=== PATIENT | female | born 1995 | race Caucasian/White ===

== ENCOUNTER 2017-10-04 13:20 | Emergency (ER) | payer MEDICAID, SELFPAY ==
[2017-10-04 14:03] LABS: #Basophils 0.1 thou/uL (0.0-0.2); #Eosinphils 0.4 thou/uL (0.0-0.7); #Lymphocytes 1.6 thou/uL (1.20-3.40); #Monocytes 0.6 thou/uL (0.11-0.59); #Neutrophils 5.2 thou/uL (1.40-6.50); %Basophils 0.8 % (0.0-1.0); %Eosinophils 5.6 % (0.0-10.0); %Lymphocytes 20.1 % (21.0-51.0); %Monocytes 8.1 % (0.0-10.0); %Neutrophils 65.4 % (42.0-75.0); Hemoglobin 14.6 g/dL (12.0-16.0); Mean Corpuscular HGB CONC 32.7 g/dL (32.0-36.0); Mean Corpuscular Hemoglobin 28.8 pg (27.0-31.0); Mean Corpuscular Volume 88.2 fl (81.0-99.0); Mean Platelet Volume 7.8 fL (7.4-10.4); Platelet Count 218 thou/uL (130-400); RBC Distribution Width 11.9 % (11.5-14.5); Red Blood Cell (RBC) Count 5.09 mill/uL (4.20-5.40); White Blood Cell (WBC) Count 7.9 thou/uL (4.8-10.8)
[2017-10-04 14:19] LABS: ALT (SGPT) 16 U/L (8-55); AST (SGOT) 14 U/L (5-34); Albumin 4.5 g/dL (3.5-5.0); Alkaline Phosphatase 75 U/L (40-150); Anion Gap 11 mmol/L (10-20); BUN (Urea Nitrogen) 8 mg/dL (7.0-18.7); Bilirubin, Total 0.9 mg/dL (0.2-1.2); Calc. Creatinine Clearance 0 mL/min (70-130); Calcium 9.7 mg/dL (7.8-10.44); Carbon Dioxide 25 mmol/L (22-29); Chloride 105 mmol/L (98-107); Estimated GFR-MDRD 80; Glucose 95 mg/dL (70-105); Potassium 4.2 mmol/L (3.5-5.1); Protein, Total 7.5 g/dL (6.0-8.3); Sodium 137 mmol/L (136-145)
[2017-10-04 16:11] LABS: Bilirubin Negative (Negative); Blood, Urine Negative (Negative); Clarity CLOUDY (Clear); Glucose, Urine (Dipstick) Negative (Negative); Leukocyte Negative (Negative); Nitrite Negative (Negative); Protein, Urine (Dipstick) Negative (Neg-Trace); Specific Gravity, Urine 1.014 (1.002-1.036); pH, Urine 7.5 (5.0-9.0)
[2017-10-04 16:13] LABS: Pregnancy Test - Urine (BHCG) POSITIVE (Negative); Pregu Control Background? CLEAR/WHITE (CLR/WHITE); Pregu Control Bar Appear? YES (CONTROL BAR); Specific Gravity 1.014 (1.002-1.036)
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
== END 2017-10-04 19:30 | disposition home or self-care (01) ==
LOC: ERS 13:20
DX: O99.89 Other specified diseases and conditions complicating pregnancy, childbirth and the puerperium (principal); R10.31 Right lower quadrant pain; O99.331 Smoking (tobacco) complicating pregnancy, first trimester; F17.200 Nicotine dependence, unspecified, uncomplicated
CPT/HCPCS: 36415; 76856; 80053; 81003; 81025; 84702; 85025

== ENCOUNTER 2017-10-05 12:44 | Inpatient (IN) | payer MEDICAID, OTHER, SELFPAY ==
[2017-10-05 13:17] LABS: #Eosinphils 0.4 thou/uL (0.0-0.7); #Lymphocytes 1.7 thou/uL (1.20-3.40); #Monocytes 0.6 thou/uL (0.11-0.59); #Neutrophils 5.4 thou/uL (1.40-6.50); %Basophils 0.6 % (0.0-1.0); %Eosinophils 4.5 % (0.0-10.0); %Lymphocytes 20.6 % (21.0-51.0); %Monocytes 7.3 % (0.0-10.0); Hemoglobin 14.8 g/dL (12.0-16.0); Mean Corpuscular HGB CONC 32.7 g/dL (32.0-36.0); Mean Corpuscular Hemoglobin 28.7 pg (27.0-31.0); Mean Corpuscular Volume 87.6 fl (81.0-99.0); Mean Platelet Volume 7.7 fL (7.4-10.4); Platelet Count 226 thou/uL (130-400); RBC Distribution Width 11.9 % (11.5-14.5); Red Blood Cell (RBC) Count 5.18 mill/uL (4.20-5.40)
[2017-10-05 13:43] LABS: ALT (SGPT) 15 U/L (8-55); AST (SGOT) 14 U/L (5-34); Albumin 4.7 g/dL (3.5-5.0); Alkaline Phosphatase 76 U/L (40-150); Anion Gap 12 mmol/L (10-20); BUN (Urea Nitrogen) 8 mg/dL (7.0-18.7); Bilirubin, Total 0.9 mg/dL (0.2-1.2); Calc. Creatinine Clearance 0 mL/min (70-130); Calcium 10.1 mg/dL (7.8-10.44); Carbon Dioxide 25 mmol/L (22-29); Chloride 104 mmol/L (98-107); Estimated GFR-MDRD 83; Globulin 3.3 g/dL (2.4-3.5); Glucose 122 mg/dL (70-105); Potassium 4.1 mmol/L (3.5-5.1); Sodium 137 mmol/L (136-145)
[2017-10-05] MEDS ORDERED: Succinylcholine Chloride 20 MG/ML 10 ml SYRINGE FS ONE (13:56)
[2017-10-05] MEDS ORDERED: Ondansetron HCl/PF 4 MG/2 ML Vial ONE (13:56)
[2017-10-05] MEDS ORDERED: Ketorolac Tromethamine 30 MG/ML VIAL ONE (13:56)
[2017-10-05] MEDS ORDERED: Dexamethasone 20 MG/5 ML VIAL ONE (13:56)
[2017-10-05] MEDS ORDERED: Lidocaine 1% PF 5 ML VIAL ONE (13:56)
[2017-10-05] MEDS ORDERED: Glycopyrrolate 0.2 MG/ML 5 ML SYRINGE ONE (13:56)
[2017-10-05] MEDS ORDERED: Propofol 200 MG/20 ML VIAL ONE (13:56)
[2017-10-05] MEDS ORDERED: HYDROmorphone 0.5 MG/0.5 ML SYRINGE ONE (20:42)
[2017-10-05] MEDS ORDERED: Fentanyl 100 MCG/2 ML VIAL ONE ×2 (20:42→22:54)
[2017-10-05] MEDS ORDERED: Piperacillin/Tazobactam 3.375 GM in Sodium Chloride 0.9% 100 ML IVPB SCH (20:45)
[2017-10-05] MEDS ORDERED: EPINEPHrine 1 MG/ML AMP ONE (20:49)
[2017-10-05] MEDS ORDERED: Bupivacaine 0.25% HCL 30 ML VIAL ONE ×2 (20:49)
--- NOTE | 2017-10-05 21:56 | MRI ---
MRI OF THE ABDOMEN WITHOUT CONTRAST 10/05/17 COMPARISON: None. HISTORY: Right sided abdominal pain. TECHNIQUE: Multiplanar and multisequence MR images were obtained of the abdomen without contrast. FINDINGS: The cecum is identified in the right lower quadrant of the abdomen. The appendix emanates from the ce cum and is enlarged and fluid filled measuring up to 10 mm in size. There is a small amount of free f luid adjacent to the cecum and a small amount of free fluid in the pelvis. The reproductive organs are unremarkable. No abdominal adenopathy is seen. No marrow signal abnormali ty is present. No uterine abnormality is seen. IMPRESSION: Dilated fluid filled appendix with small amount of free fluid in the abdomen and pelvis. These findin gs are evidence for acute appendicitis. Dr. Schuler notified of the findings at 8:06 p.m. on 10/05/17. POS: [facility]
[2017-10-05] MEDS ORDERED: Dextrose 5% in Water 1,000 ML IV PRN (22:28)
[2017-10-05] MEDS ORDERED: Promethazine HCl 25 MG/ML VIAL IM PRN (22:28)
[2017-10-05] MEDS ORDERED: hydrALAZINE 20 MG/ML VIAL SLOW IVP PRN (22:28)
[2017-10-05] MEDS ORDERED: HYDROcodone/Acetaminophen 10/325 mg Tablet PO PRN (22:28)
[2017-10-05] MEDS ORDERED: Ondansetron HCl/PF 4 MG/2 ML Vial IVP PRN (22:28)
[2017-10-05] MEDS ORDERED: Dextrose 50% Abboject 50 ML SYRINGE SLOW IVP PRN (22:28)
[2017-10-05] MEDS ORDERED: Acetaminophen/Codeine 30-300mg Tablet PO PRN ×2 (22:31)
--- NOTE | 2017-10-05 23:16 | HP ---
DATE OF ADMISSION: 10/05/2017 HISTORY OF PRESENT ILLNESS: This is a 22-year-old woman, G1, P0, approximately 1 week intr auterine . Last menstrual period was 5 weeks ago. The patient presented to the emergency d [facility] with 2-3 day history of right lower quadrant abdominal pain associated with some nausea, bu t no emesis. She was seen in the emergency department yesterday following abdominal ultrasound, was discharged home, and advised to return to the emergency department with any exacerbation of abdominal pain. The pain at that time was 4/10. The pain intensified today to 6-7/10. As a result, the morelia ent returned to the emergency department. At the time of my evaluation, she denies any fever; howeve r, felt some chills. She denies any diarrhea. PAST MEDICAL HISTORY: She denies any previous medical problems. PAST SURGICAL HISTORY: The patient has had no previous surgeries. SOCIAL HISTORY: She is single. 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 She admits to smoking a quarter pack of cigarettes per day and has done so for less than 1 year. She admits to occasional intake of etha nol in moderate amounts. She denies any illicit drug abuse. FAMILY HISTORY: Notable for her father who from complications of melanoma. She denies any fami ly history of diabetes mellitus, hypertension or heart disease. She denies any history of inflammato ry bowel disease. CURRENT MEDICATIONS: None. ALLERGIES: The patient denies any known drug allergies. REVIEW OF SYSTEMS: Ten-point review of systems essentially unremarkable except for as stated in past medical history and chief complaint. PHYSICAL EXAMINATION: GENERAL: This reveals a 22-year-old normally developed woman, who is otherwise coherent and interact bry and appears stated age. The patient is alert and oriented x3. She appears to be in no acute dis tress at the time of my evaluation. VITAL SIGNS: Include blood pressure 116/66, pulse 98, respiratory rate is 18, temperature is 98.5 de grees Fahrenheit. Oxygen saturation is 97% on room air. HEENT: Reveals normocephalic and atraumatic. Pupils are equal, round, and reactive to light and acc ommodation. Extraocular muscles are intact bilaterally. No sclerae icterus is present. Oral mucosa is pink and moist. No lesions are noted. NECK: Supple. No palpable lymphadenopathy or thyromegaly present. HEART: Reveals regular rate and rhythm, no murmurs or gallops auscultated. LUNGS: Clear to auscultation bilaterally. Her breathing is regular and unlabored. ABDOMEN: Soft with right lower quadrant tenderness at McBurney's. She has a negative Rovsing sign. High uterus is palpated still in the pelvis. Liver and spleen are otherwise nonpalpable below simental l margins. EXTREMITIES: Reveal 2+ radial and pedal pulses bilaterally. No ankle edema is present. NEUROLOGIC: Reveals no focal deficits present. PERTINENT LABORATORY DATA: Today includes CBC with 8000 white blood cells, hemoglobin 14.8, hematocr it is 45.4, platelet count is 226,000. This is essentially unchanged from a white blood cell count o f 7900 yesterday. Metabolic profile: Sodium 137, potassium is 4.1, chloride is 104, bicarbonate 25, BUN 8, creatinine is 0.84, glucose is 122, total bilirubin is 0.9, AST and ALT are normal at 14 and 15 respectively. Alkaline phosphatase is 76. Beta hCG is elevated at 180.15. I reviewed the MRI of the abdomen with the radiologist. This is consistent with a dilated appendix at 1 cm in diameter, w hich is fluid filled and some periappendiceal fat stranding. IMPRESSION: 1. Acute appendicitis. 2. Approximately 1-week intrauterine . PLAN: Laparoscopic appendectomy. Above findings and plan discussed with the patient. I have advise d the patient of the risks and benefits of the proposed surgery. Risks include, but not limited to b leeding, infection, injury to bowel or surrounding structures. Additionally, she is at risk for spon taneous postoperative . The patient indicates understanding of this information and has gran marilynn consent for this admission and surgical intervention.
[2017-10-06] MEDS: Lactated Ringer's 1,000 ML IV SCH ×2 (00:06→09:14)
[2017-10-06 00:11] VITALS: BMI 24.7
--- NOTE | 2017-10-06 00:51 | OP ---
DATE OF OPERATION: 10/05/2017. PREOPERATIVE DIAGNOSES: 1. Acute appendicitis. 2. Approximately 1 week intrauterine . POSTOPERATIVE DIAGNOSES: 1. Acute appendicitis. 2. Approximately 1 week intrauterine . OPERATION PERFORMED: Laparoscopic appendectomy. SURGEON: Kenyon Iyer DO ANESTHESIA: General endotracheal. ESTIMATED BLOOD LOSS: 5 mL. FLUIDS GIVEN: 800 mL crystalloids. SPONGE AND INSTRUMENT COUNT: Certified as correct x2. COMPLICATIONS: None apparent at the time of operation. INDICATIONS FOR OPERATION: This is a 22-year-old woman, G1, P0, approximately 1 week intrauterine pr egnancy who presented with 2 to 3-day history of right lower quadrant abdominal pain. Clinical and radiographic examination was consistent with acute appendicitis, for which the patient w as brought to the operating room for laparoscopic appendectomy. FINDINGS: Consistent with infra-retrocecal appendix, which was suppurative but not perforated. DESCRIPTION OF OPERATION: Informed consent was obtained from the patient. She was brought to the op erating room and placed in supine position. Following anesthesia, a Alcala catheter was inserted and placed to bedside drain. The abdomen was sterilely prepped and draped in the usual fashion. Skin below the umbilicus was infi ltrated with 0.25% Marcaine with epinephrine. A small curvilinear infraumbilical incision was made u sing an 11-scalpel. Umbilical stalk was grasped with a Yanni and elevated. Veress needle was inser marilynn through the incision and placed in the peritoneal cavity, through which the abdomen was insufflat ed with 3 liters of CO2 gas. Intra-abdominal pressure noted at 1 mmHg. Following abdominal insuffla tion, Veress needle was removed, 5-mm trocar introduced using a Visiport under laparoscopy. Laparosc opy confirmed proper placement of the port, no injuries to underlying structures. Additional laparos copy revealed right lower quadrant partially encased by omental adhesions. Under laparoscopy, a 5-mm epigastric and 12-mm left lower quadrant ports were placed after the overlying skin were infiltrated with 0.25% Marcaine with epinephrine and appropriate incisions were made. The patient was placed in the Trendelenburg position, rotated to her left. I introduced Gladysige gra sper through the left lower quadrant port site using this to bluntly take down omental adhesions to e xpose inferior but retrocecal appendix. An Endo Lowber forceps was then introduced through the supr apubic port site grasping the appendix, which was elevated. I used the [place] dissector to create a rent through the mesoappendix at the base, through which an Endo-ZULAY with a blue load was introduce d. Appendix was then divided at the appendicocecal junction. Using a white load of the Endo-ZULAY, th e mesoappendix was divided at the base. Suppurative appendix was delivered off the abdominal cavity using an EndoCatch. Operative site was inspected for good hemostasis. Finding no other pathology, laparoscopy was terminated. Fascia of the left lower quadrant port was c losed using 0 Vicryl suture and Endo closure device under laparoscopy. The abdomen was desufflated. All ports and instruments removed and accounted for. Skin incisions were then closed using 4-0 Prentiss cryl suture in subcuticular fashion. Dermabond was applied over the incisions after closure. The lisset clark tolerated this operation without any apparent complication and was returned to the recovery [facility] in satisfactory condition.
[2017-10-06] MEDS: Piperacillin/Tazobactam 3.375 GM in Sodium Chloride 0.9% 100 ML IVPB SCH ×2 (03:49→09:54)
[2017-10-06 08:10] VITALS: BP 90/52; TEMP 98.5
[2017-10-06] MEDS ORDERED: Famotidine/PF 20 mg/2ml Vial SLOW IVP SCH (09:00)
[2017-10-06] MEDS ORDERED: Famotidine 20 MG TAB PO SCH (09:00)
--- NOTE | 2017-10-08 11:30 | DIS ---
DATE OF ADMISSION: 10/05/2017 DATE OF DISCHARGE: 10/06/2017 ADMISSION DIAGNOSIS: Acute appendicitis. CONSULTATIONS: None. PROCEDURES: Laparoscopic appendectomy. HOSPITAL SUMMARY: The patient is a 22-year-old woman who is G1, P0 approximately 1 week intrauterine who presented with a 2-3 day history of right lower quadrant abdominal pain. Patient unde rwent evaluation for this complaint, was noted to have an acute appendicitis. The patient would unde rgo her above procedure. She would tolerate this procedure well. [facility]. The following morning, she was tolerating a diet. She was ambulatory without assistance. Her pain was controlled and she will be discharged home. The patient will follow up ms rachel Iyer in our clinic in 2 weeks, sooner as needed.
== END 2017-10-06 11:03 | disposition home or self-care (01) | DRG 781 ==
LOC: ERS 12:44 → SURG B 21:15 → SDC 22:04 → SURG B 22:28
PROVIDERS: ADMIT Surgery; ATTEND Surgery
PROC: 0DTJ4ZZ Resection of Appendix, Percutaneous Endoscopic Approach (ICD-10-PCS; principal; 2017-10-05)
DX: O99.611 Diseases of the digestive system complicating pregnancy, first trimester (principal); K35.80 Unspecified acute appendicitis; Z3A.01 Less than 8 weeks gestation of pregnancy; O99.331 Smoking (tobacco) complicating pregnancy, first trimester; F17.210 Nicotine dependence, cigarettes, uncomplicated
CPT/HCPCS: 36415; 74181; 80053; 84702; 85025; 88304; 88313; 88341; 88342; 96360; J0171; J1100; J1170; J1885; J2001; J2405; J2543; J2550; J2704; J3010; J7050; S0020

== ENCOUNTER 2017-10-18 23:31 | Emergency (ER) | payer MEDICAID ==
[2017-10-19 00:20] LABS: Bilirubin Negative (Negative); Blood, Urine Negative (Negative); Clarity CLEAR (Clear); Glucose, Urine (Dipstick) Negative (Negative); Leukocyte Negative (Negative); Nitrite Negative (Negative); Protein, Urine (Dipstick) Negative (Neg-Trace); Specific Gravity, Urine 1.014 (1.002-1.036); Urobilinogen 0.2 mg/dL (0.2-1.0)
[2017-10-19 00:25] LABS: #Basophils 0.1 thou/uL (0.0-0.2); #Eosinphils 0.5 thou/uL (0.0-0.7); #Lymphocytes 2.3 thou/uL (1.20-3.40); #Monocytes 0.8 thou/uL (0.11-0.59); #Neutrophils 6.8 thou/uL (1.40-6.50); %Basophils 0.9 % (0.0-1.0); %Eosinophils 4.7 % (0.0-10.0); %Monocytes 7.4 % (0.0-10.0); Mean Corpuscular HGB CONC 32.2 g/dL (32.0-36.0); Mean Corpuscular Hemoglobin 28.5 pg (27.0-31.0); Mean Corpuscular Volume 88.6 fl (81.0-99.0); Mean Platelet Volume 7.7 fL (7.4-10.4); Platelet Count 260 thou/uL (130-400); RBC Distribution Width 11.8 % (11.5-14.5); Red Blood Cell (RBC) Count 4.56 mill/uL (4.20-5.40); White Blood Cell (WBC) Count 10.5 thou/uL (4.8-10.8)
[2017-10-19] MEDS ORDERED: Acetaminophen 500 MG TAB ONE (00:40)
[2017-10-19 00:46] LABS: ALT (SGPT) 13 U/L (8-55); AST (SGOT) 9 U/L (5-34); Albumin 4.1 g/dL (3.5-5.0); Alkaline Phosphatase 81 U/L (40-150); Anion Gap 11 mmol/L (10-20); BUN (Urea Nitrogen) 5 mg/dL (7.0-18.7); Bilirubin, Total 0.5 mg/dL (0.2-1.2); Calc. Creatinine Clearance 0 mL/min (70-130); Calcium 9.4 mg/dL (7.8-10.44); Carbon Dioxide 24 mmol/L (22-29); Chloride 104 mmol/L (98-107); Estimated GFR-MDRD Greater than 90; Globulin 2.8 g/dL (2.4-3.5); Glucose 113 mg/dL (70-105); Potassium 3.2 mmol/L (3.5-5.1); Protein, Total 6.9 g/dL (6.0-8.3); Sodium 136 mmol/L (136-145)
--- NOTE | 2017-10-19 09:35 | ULT ---
PRELIMINARY REPORT/[facility]/EMERGENCY AFTER-HOURS PROCEDURE: EXAM: US First Trimester, Transabdominal US , Transvaginal CLINICAL HISTORY: 22 years old, female; Pain and signs and symptoms; Lmp or gestational age (in weeks): 6w0d; Antepartu m complications; Other: N/v; complicated by abdominal or pelvic pain; Lower; First trimeste r; ; Prior surgery; Surgery date: <1 month; Surgery type: Appendectomy TECHNIQUE: Real-time transabdominal and transvaginal obstetrical ultrasound of the maternal pelvis and a first t rimester with image documentation. Transvaginal imaging was used for better evaluation of t he fetus and adnexa. COMPARISON: No relevant prior studies available. FINDINGS: Gestation: There is a single, live intrauterine gestation. heart rate: 95 BPM. Yolk sac: Present. pole: 6 weeks and 0 days as estimated from crown rump length. Subchorionic hemorrhage: Absent. Estimated date of confinement: 06.14.18 Maternal anatomy: Uterus: No acute disease. Ovaries: No acute disease. See Duplex exam report below. There is small to moderate volume of free right adnexal and cul de sac fluid, with mild complex featu res. Impression: Single, live intrauterine gestation. Small to moderate volume of free right adnexal and cul de sac fluid, with mild complex features. This is nonspecific finding. Heterotopic ectopic gestation is statistically highly unlikely but cannot be 100 percent excluded (1 in 30,000 for naturally conceived ). Short interval follow up advised. EXAM: US Duplex Arterial/Venous of the Pelvis, Complete CLINICAL HISTORY: 22 years old, female; Pain and signs and symptoms; Lmp or gestational age (in weeks): 6w0d; Antepartu m complications; Other: N/v; complicated by abdominal or pelvic pain; Lower; First trimeste r; ; Prior surgery; Surgery date: <1 month; Surgery type: Appendectomy TECHNIQUE: Real-time duplex ultrasound scan of the arterial and venous flow of the pelvis with color Doppler shell w and spectral waveform analysis. COMPARISON: No relevant prior studies available. FINDINGS: Right ovary: No acute findings. 3.3 x 2.0 x 1.4 cm. Normal arterial and venous blood flow. No torsion . Left ovary: No acute findings. 3.0 x 2.0 x 2.2 cm. Normal arterial and venous blood flow. No torsion. IMPRESSION: Normal duplex ultrasound of the ovaries. Thank you for allowing us to participate in the care of your patient. Dictated and Authenticated by: Juan R Cornejo MD 10/19/2017 3:44 AM Central Time ([place] & [place]) FINAL REPORT PELVIC ULTRASOUND: Date: 10/19/17 HISTORY: Pelvic pain. COMPARISON: 10/04/17. TECHNIQUE: Transabdominal and endovaginal imaging of the pelvis is performed. Ovaries interrogated with Gavin sca le, color flow, Doppler imaging, and spectral waveform analysis. FINDINGS: This report is in agreement with the preliminary report by Ruthie. There is a single intrauterine gesta tion with heart tones. Gestational age by crown-rump length is 6 weeks/0 days. There is complex fluid in the cul-de-sac of uncertain significance. A concomitant heterotopic gestation is statistica lly unlikely but cannot be excluded. Follow-up ultrasound and serial beta HCGs recommended. POS: [facility]
== END 2017-10-19 04:34 | disposition home or self-care (01) ==
LOC: ERS 23:31
DX: O99.89 Other specified diseases and conditions complicating pregnancy, childbirth and the puerperium (principal); R18.8 Other ascites; O99.331 Smoking (tobacco) complicating pregnancy, first trimester; F17.200 Nicotine dependence, unspecified, uncomplicated; Z3A.01 Less than 8 weeks gestation of pregnancy
CPT/HCPCS: 36415; 76856; 80053; 81003; 84702; 85025

== ENCOUNTER 2018-05-06 18:41 | Emergency (ER) | payer MEDICAID, SELFPAY ==
[2018-05-06] MEDS ORDERED: Proparacaine 0.5% Opth 15 ML BOT ONE (19:19)
[2018-05-06] MEDS ORDERED: Fluorescein Opthalmic Strip ONE (19:19)
== END 2018-05-06 20:50 | disposition home or self-care (01) ==
LOC: ERS 18:41
DX: H10.9 Unspecified conjunctivitis (principal); F17.200 Nicotine dependence, unspecified, uncomplicated
CPT/HCPCS: 99282

== ENCOUNTER 2018-05-13 13:07 | Emergency (ER) | payer SELFPAY ==
[2018-05-13] MEDS ORDERED: Fluorescein Opthalmic Strip ONE (15:20)
[2018-05-13] MEDS ORDERED: Proparacaine 0.5% Opth 15 ML BOT ONE (15:20)
== END 2018-05-13 17:38 | disposition home or self-care (01) ==
LOC: ERS 13:07
DX: H11.32 Conjunctival hemorrhage, left eye (principal)
CPT/HCPCS: 99283